=== PATIENT | male | born 1995 | race Caucasian/White ===

== ENCOUNTER 2017-04-19 14:15 | Emergency (ER) | payer OTHER ==
[~2017-04-19] VITALS: Ht 198.1 cm; Wt 72.6 kg
[~2017-04-19 14:15] MED LIST: ACET325 PO; AMOX500 PO; ARIP10; ATOM40; Augmentin 875-1 EACH PO; CODACE30 PO; Cleocin HCl300 MG PO; ERYT.5TO LEFTEYE; IBUP600 PO; Keflex500 MG PO; MELA3 PO; Norco 5-325 Ta1 EACH PO; ONDA4ODT MM; RISP.25; RISP2; TRIA80TC TOP; Triamcinolone A15 G4 TP
[2017-04-19 15:14] LABS: BASOPHILS ABSOLUTE AUTO 0.03 K/mm3 (0.00-0.23); BASOPHILS PERCENT AUTO 0 % (0-2); EOSINOPHILS ABSOLUTE AUTO 0.12 K/mm3 (0.00-0.68); EOSINOPHILS PERCENT AUTO 1 % (0-6); Hematocrit 43.4 % (37.0-53.0); Hemoglobin 14.4 g/dL (13.5-17.5); IMMATURE GRAN ABSOLUTE AUTO 0.04 K/mm3 (0.00-0.10); IMMATURE GRAN PERCENT AUTO 0 % (0-1); LYMPHOCYTES ABSOLUTE AUTO 1.78 K/mm3 (0.84-5.20); LYMPHOCYTES PERCENT AUTO 20 % (21-46); MONOCYTES PERCENT AUTO 9 % (4-13); Mean Corpuscular HGB 30.4 pg (26.0-34.0); Mean Corpuscular HGB Conc 33.2 g/dL (31.5-36.5); Mean Corpuscular Volume 92 fL (80-100); NEUTROPHILS ABSOLUTE AUTO 6.17 K/mm3 (1.96-9.15); NEUTROPHILS PERCENT AUTO 69 % (41-73); Platelet Count 283 K/mm3 (150-400); RDW Coefficient Variation 13.2 % (11.7-14.2); RDW Standard Deviation 45.2 fL (35.1-46.3); Red Blood Cell Count 4.73 M/mm3 (4.30-5.90); White Blood Cell Count 8.94 K/mm3 (4.00-11.30)
[2017-04-19 15:27] LABS: Alanine Aminotransfer (ALT/SGP 72 U/L (12-78); Albumin, Blood 3.3 g/dL (3.4-5.0); Albumin/Globulin Ratio 0.9 (0.8-1.8); Alk Phos 55 U/L (58-237); Anion Gap 5 mmol/L (6-16); Aspartate Aminotrans (AST/SGOT 31 U/L (12-37); Bilirubin, Total 0.2 mg/dL (0.1-1.0); Blood Urea Nitrogen 11 mg/dL (8-21); Bun/Creatinine Ratio 14.6 (12.0-20.0); CO2, Blood 29 mmol/L (21-32); Calcium, Blood 8.2 mg/dL (8.5-10.1); Chloride, Blood 108 mmol/L (98-108); Creatinine, Blood 0.76 mg/dL (0.60-1.20); Globulin, Blood 3.5 g/dL (2.2-4.0); Glomerular Filtration Rate >60 (60-); Glucose, Blood 92 mg/dL (70-99); Potassium, Blood 3.8 mmol/L (3.5-5.5); Sodium, Blood 142 mmol/L (136-145); Total Protein, Blood 6.8 g/dL (6.4-8.2)
[2017-04-19] MEDS ORDERED: Zofran Odt4 MG PO (16:02)
== END 2017-04-19 16:24 | disposition home or self-care (01) ==
LOC: ER 14:15
PROVIDERS: Emergency Medicine
DX: S06.0X1A Concussion with loss of consciousness of 30 minutes or less, initial encounter (principal); S01.112A Laceration without foreign body of left eyelid and periocular area, initial encounter; S01.511A Laceration without foreign body of lip, initial encounter; F17.210 Nicotine dependence, cigarettes, uncomplicated; F32.9 Major depressive disorder, single episode, unspecified; F31.9 Bipolar disorder, unspecified; W17.89XA Other fall from one level to another, initial encounter; Y92.481 Parking lot as the place of occurrence of the external cause
CPT/HCPCS: 12011; 70450; 72125; 80053; 85025; 96374; 99284; J2270; J7030

== ENCOUNTER 2017-07-12 21:21 | Emergency (ER) | payer OTHER ==
[~2017-07-12] VITALS: Ht 198.1 cm; Wt 68.0 kg
[~2017-07-12 21:21] MED LIST changes: +Zofran Odt4 MG PO
== END 2017-07-12 23:00 | disposition home or self-care (01) ==
LOC: ER 21:21
DX: R07.81 Pleurodynia (principal); Y04.8XXA Assault by other bodily force, initial encounter; F32.9 Major depressive disorder, single episode, unspecified; F31.9 Bipolar disorder, unspecified; F17.210 Nicotine dependence, cigarettes, uncomplicated
CPT/HCPCS: 71046

== ENCOUNTER 2017-08-09 10:16 | Emergency (ER) | payer OTHER ==
[~2017-08-09] VITALS: Ht 198.1 cm; Wt 70.3 kg
[2017-08-09] MEDS ORDERED: LIDO5TO TOP (10:34)
[2017-08-09] MEDS ORDERED: CEPH500 PO (10:34)
[2017-08-09] MEDS ORDERED: Monodox100 MG PO (10:34)
[2017-08-09] MEDS ORDERED: MUPIROCIN1 GM TOP (10:34)
== END 2017-08-09 10:42 | disposition home or self-care (01) ==
LOC: ER 10:16
DX: L01.00 Impetigo, unspecified (principal); F31.9 Bipolar disorder, unspecified; F17.210 Nicotine dependence, cigarettes, uncomplicated; Z79.899 Other long term (current) drug therapy
CPT/HCPCS: 99283

== ENCOUNTER 2019-11-21 15:46 | Emergency (ER) | payer SELFPAY ==
[~2019-11-21] VITALS: Ht 200.7 cm; Wt 74.8 kg
[~2019-11-21 15:46] MED LIST changes: +CEPH500 PO; +LIDO5TO TOP; +MUPIROCIN1 GM TOP; +Monodox100 MG PO
[2019-11-21] MEDS ORDERED: IBUP400 PO (16:39)
[2019-11-21] MEDS ORDERED: Amoxicillin500 MG PO (19:03)
[2019-11-21] MEDS ORDERED: TRAM50 PO (19:03)
== END 2019-11-21 19:19 | disposition home or self-care (01) ==
LOC: ER 15:46
DX: K04.7 Periapical abscess without sinus (principal); R20.0 Anesthesia of skin; F31.9 Bipolar disorder, unspecified; F17.210 Nicotine dependence, cigarettes, uncomplicated
CPT/HCPCS: 99282